=== PATIENT | female | born 1945 | race Caucasian/White ===

== ENCOUNTER → 2016-09-07 | Outpatient (CLI) | payer BC ==
[~2016-09-07] MED LIST: ASPEC81 PO; CMD5 PO; DILT120C99 PO; GLC/500 PO; METO25TA3 PO
== END | disposition home or self-care (01) ==
LOC: C.PAPS 12:30
PROVIDERS: ATTEND Obstetrics & Gynecology
DX: R87.619 Unspecified abnormal cytological findings in specimens from cervix uteri (principal); N88.0 Leukoplakia of cervix uteri

== ENCOUNTER → 2016-12-26 | Outpatient (CLI) | payer BC ==
[2016-12-26 08:35] LABS: BASO % 0.4 %; BASO ABS # 0.02 K/uL (0-0.2); COMPLETE YES; EOS % 2.2 %; HEMATOCRIT 41.9 % (37-47); IG% 0.2 %; LYMPH % 29.6 %; LYMPH ABS # 1.46 K/uL (1.2-3.4); MEAN CELL VOLUME 94.2 fL (80-100); MEAN CORPUSCULAR HEMOGLOBIN 31.7 pg (25-34); MEAN CORPUSCULAR HGB CONC 33.7 g/dl (32-36); MEAN PLATELET VOLUME 10.2 fL (7.4-10.4); NEUT % 54.6 %; PLATELET COUNT 197 K/uL (130-400); RED BLOOD COUNT 4.45 M/uL (4.2-5.4); WHITE BLOOD COUNT 4.93 K/uL (4.8-10.8)
[2016-12-26 08:56] LABS: ALT/SGPT 16 U/L (12-78); BLOOD UREA NITROGEN 18 mg/dl (7-18); CARBON DIOXIDE 29 mmol/L (21-32); CHLORIDE 109 mmol/L (98-107); CHOLESTEROL 153 mg/dl (0-200); GLUCOSE 96 mg/dl (70-99); POTASSIUM 4.5 mmol/L (3.5-5.1); SODIUM 143 mmol/L (136-145)
[2016-12-26 08:59] LABS: ALB/GLOB RATIO 0.8 (0.9-2); ALKALINE PHOSPHATASE 66 U/L (45-117); AST/SGOT 17 U/L (15-37); CHOLESTEROL/HDL RATIO 2.7; HDL CHOLESTEROL 57 mg/dl; LDL CHOLESTEROL CALCULATED 76 mg/dl; TRIGLYCERIDES 101 mg/dl (0-150); VERY LOW DENSITY LIPOPROT CALC 20 mg/dl
[2016-12-26 09:09] LABS: RATIO 10.8 mcg/mg (0-30.0)
[2016-12-26 09:14] LABS: ESTIMATED AVERAGE GLUCOSE 131 mg/dl; HA1C FLAG Normal (Normal)
[2016-12-26 09:21] LABS: CALCIUM 8.8 mg/dl (8.5-10.1)
== END | disposition home or self-care (01) ==
LOC: C.LAB 08:05
PROVIDERS: ATTEND Nurse Practitioner Family
DX: I10 Essential (primary) hypertension (principal); E11.9 Type 2 diabetes mellitus without complications; Z13.220 Encounter for screening for lipoid disorders

== ENCOUNTER → 2017-02-04 | Outpatient (CLI) | payer BC | END | disposition home or self-care (01) | LOC: C.MAMM 14:20 | PROVIDERS: ATTEND Nurse Practitioner Family | DX: Z13.820 Encounter for screening for osteoporosis (principal); M85.851 Other specified disorders of bone density and structure, right thigh; M85.852 Other specified disorders of bone density and structure, left thigh ==

== ENCOUNTER → 2017-03-18 | Outpatient (CLI) | payer BC ==
--- NOTE | 2017-03-19 14:31 | MAMMOGRAPHY REPORT ---
BILATERAL DIGITAL SCREENING MAMMOGRAM WITH CAD: 03/18/2017 CLINICAL HISTORY: Routine screening. TECHNIQUE: Current study was also evaluated with a Computer Aided Detection (CAD) system. Bilateral CC and MLO views were obtained. COMPARISON: Comparison is made to exams dated: 02/26/2016 mammogram, 02/20/2015 mammogram, 02/06/2014 ma mmogram, 07/13/2012 mammogram, 02/17/2011 mammogram - [facility], and 01/04/2009. BREAST COMPOSITION: There are scattered areas of fibroglandular density in both breasts. FINDINGS: No suspicious masses, calcifications, or areas of architectural distortion are noted in ei ther breast. There has been no significant interval change compared to prior exams. IMPRESSION: ACR BI-RADS CATEGORY 1: NEGATIVE There is no mammographic evidence of malignancy. A 1 year screening mammogram is recommended. The pa tient will receive written notification of the results. Approximately 10% of breast cancers are not detected with mammography. A negative mammographic report should not delay biopsy if a clinically suggestive mass is present. Eloisa Cheatham M.D. ah/:03/18/2017 16:28:04 [facility]: Norman PAGE(R)(M), [facility] letter sent: Normal 1/2 BI-RADS Code: ACR BI-RADS Category 1: Negative
== END | disposition home or self-care (01) ==
LOC: C.MAMM 15:11
PROVIDERS: ATTEND Obstetrics & Gynecology
DX: Z12.31 Encounter for screening mammogram for malignant neoplasm of breast (principal)

== ENCOUNTER → 2017-04-22 | Outpatient (CLI) | payer BC | END | disposition home or self-care (01) | LOC: C.PAPS 09:31 | PROVIDERS: ATTEND Obstetrics & Gynecology | DX: R87.610 Atypical squamous cells of undetermined significance on cytologic smear of cervix (ASC-US) (principal); Z11.51 Encounter for screening for human papillomavirus (HPV); Z78.0 Asymptomatic menopausal state ==

== ENCOUNTER → 2017-09-03 | Outpatient (CLI) | payer BC ==
[2017-09-03 17:34] LABS: ALBUMIN 3.3 gm/dl (3.4-5.0); ALT/SGPT 19 U/L (12-78); BLOOD UREA NITROGEN 23 mg/dl (7-18); CALCIUM 8.5 mg/dl (8.5-10.1); CARBON DIOXIDE 28 mmol/L (21-32); CREATININE 1.21 mg/dl (0.60-1.20); GLUCOSE 82 mg/dl (70-99); POTASSIUM 4.3 mmol/L (3.5-5.1); SODIUM 140 mmol/L (136-145)
[2017-09-03 17:37] LABS: ALKALINE PHOSPHATASE 74 U/L (45-117); AST/SGOT 19 U/L (15-37); TOTAL PROTEIN 7.2 gm/dl (6.4-8.2)
== END | disposition home or self-care (01) ==
LOC: C.LAB1850 14:50
PROVIDERS: ATTEND Nurse Practitioner Family
DX: E11.9 Type 2 diabetes mellitus without complications (principal)

== ENCOUNTER → 2017-10-01 | Outpatient (CLI) | payer BC ==
[2017-10-01 15:07] LABS: ALBUMIN 3.2 gm/dl (3.4-5.0); AST/SGOT 15 U/L (15-37); BLOOD UREA NITROGEN 17 mg/dl (7-18); CALCIUM 8.7 mg/dl (8.5-10.1); CARBON DIOXIDE 28 mmol/L (21-32); CREATININE 1.03 mg/dl (0.60-1.20); GLUCOSE 78 mg/dl (70-99); POTASSIUM 4.1 mmol/L (3.5-5.1); SODIUM 139 mmol/L (136-145)
[2017-10-01 15:09] LABS: ALKALINE PHOSPHATASE 77 U/L (45-117); ALT/SGPT 16 U/L (12-78)
== END | disposition home or self-care (01) ==
LOC: C.LAB1850 12:54
PROVIDERS: ATTEND Nurse Practitioner Family
DX: E11.9 Type 2 diabetes mellitus without complications (principal)

== ENCOUNTER 2021-01-19 13:22 | Inpatient (IN) ==
[2021-01-19] MEDS ORDERED: FAMOTIDINE 20MG IV PUSH 20 MG/5 ML SYR IV STA (14:16)
[2021-01-19] MEDS ORDERED: ACETAMINOPHEN 1,000 MG/100 ML VIAL IV STA (14:16)
[2021-01-19] MEDS ORDERED: SODIUM CHLORIDE 0.9% 1000ML 1,000 ML IV ONE ×2 (14:16→18:08)
[2021-01-19] MEDS ORDERED: ONDANSETRON INJ 2 MG/ML 2 ML VIAL IV STA (14:16)
--- NOTE | 2021-01-19 14:34 | Emergency Department Note ---
Impression & Plan Pyelonephritis, acute, Acute kidney injury, Hypomagnesemia ED Provider Note NAME: JONO WILLOUGHBY AGE: 75 SEX: F ARRIVES VIA: Ambulance INFORMANT: Patient, ED PROVIDER(S): Addison Matthews MD CHIEF COMPLAINT: abdominal pain, n/v/d PLAN: Disposition: Admit MEDICAL DECISION MAKING: The patient is a pleasant 75-year-old woman with a past medical history of atrial fibrillation on Coumadin, hypertension, diabetes who presents to the [facility] department by her with worsening generalized weakness dizziness and palpitations in the setting of developing nausea, vomiting and diarrhea on [place] and ate dinner and she reports she ate chicken which she feels may have gotten her sick. She reports the first night/Wednesday night having too many bowel movements to count that were watery. This is slow down in frequency but she feels her nausea has not let her hydrate and feels she is dehydrated. She denies any fevers, cough, congestion, urinary symptoms. She reports having her second COVID-19 immunization in September. Denies any known COVID-19 exposures. On arrival patient is fatigued appearing, uncomfortable but no acute distress, afebrile with heart rate in the 110s and vital signs otherwise stable. She appears clinically dry. She has generalized abdominal discomfort without discrete tenderness EKG without overt acute ischemia. CXR with nonspecific interstitial thickening. WBC 11.7K. H/H and platelets wnl. INR subtherapeutic at 1.7. Chemistry without acidosis. Lactate 1.4, wnl. Cr. 1.58 c/w EZRA. Magnesium 1.5 with repletion intitiated. Otherwise, electrolytes unremarkable. Total bilirubin 1.9 with Direct bilirubin 0.8. Otherwise, LFTs without significant abnormality. Troponin negative/undetectable. Lipase wnl. UA suspicious for infection. CT abd/pelvis c/w pyelonephritis. Findings were reviewed with the patient and her . While she did feel somewhat improved, she is still uncomfortable and she agrees for plan for admission. Case was discussed with Dr. Hilton, [facility] hospitalist, who will evaluate the patient for admission. Triage Nursing notes reviewed and agree them. Prior medical records reviewed Vital Signs: reviewed and remarkable for tachycardia. Differential diagnosis: Appendicitis, ovarian cyst, ovarian torsion, ectopic , TOA, PID, infections, diverticulitis, UTI, obstruction, mesenteric ischemia, aortic pathology, inflammatory bowel disease, renal colic, PUD, pancreatitis, biliary pathology, hernia, volvulus, constipation, as well as other pathologies. ER treatment provided: See below. Diagnostics interpreted by me: ECG: Atrial Fibrillation, 113 bpm, no ectopy, nonspecific ST abnormality, no overt ST elevation or depression. Cardiac Monitoring: An order for continuous cardiac monitoring was placed and demonstrated Atrial Fibrillation, 113 bpm, no ectopy. Laboratory studies: See below Imaging studies: See below Consultation(s): Case was discussed with Dr. Hilton, [facility] hospitalist, who will evaluate the patient for admission. HPI: The patient is a pleasant 75-year-old woman with a past medical history of atrial fibrillation on Coumadin, hypertension, diabetes who presents to the emergency department by her with worsening generalized weakness dizziness and palpitations in the setting of developing nausea, vomiting and telly rrhea on Wednesday when [place] and ate dinner and she reports she ate chicken which she feels may have gotten her sick. She reports the first night/Wednesday night having too many bowel movements to count that were watery. This is slow down in frequency but she feels her nausea has not let her hydrate and feels she is dehydrated. She denies any fevers, cough, congestion, urinary symptoms. She reports having her second COVID-19 immunization in September. Denies any known COVID-19 exposures. ROS: See above HPI for pertinent positives & negatives. A total of 10 systems reviewed and were otherwise negative. PAST MEDICAL HISTORY:See Below PAST SURGICAL HISTORY:See Below FAMILY HISTORY:See Below SOCIAL HISTORY:See Below HOME MEDICATIONS:See Below ALLERGIES:See Below VITALS:See Below PHYSICAL EXAMINATION: GENERAL: Awake, alert, fatigued/uncomfortable-appearing, in no distress HENT: Normocephalic, atraumatic. Oropharynx with dry mucous membranes and otherwise unremarkable. EYES: Normal conjunctiva. Sclera non-icteric. NECK: Supple. No nuchal rigidity. FROM. No JVD. RESPIRATORY: Clear to auscultation. CARDIAC: Tachycardia rate, irregular rhythm. Extremities warm and well perfused. Pulses equal. ABDOMEN: Soft, non-distended. Generalized abdominal discomfort without discrete tenderness to palpation. No rebound or guarding. No masses. RECTAL: Deferred. MUSCULOSKELETAL: Chest examination reveals no tenderness. The back is symmetrical on inspection without obvious abnormality. There is no CVA tenderness to palpation. No joint edema. LOWER EXTREMITIES: Calves are equal size bilaterally and non-tender. No edema. N o discoloration. NEURO: Normal sensorium. No sensory or motor deficits noted. SKIN: No rash or jaundice noted. Addison Matthews MD Past Med/Surg History Medical History Anticoagulant long-term use Atrial fibrillation with RVR (09/21/13) Atypical glandular cells of undetermined significance (TRES) on cervical Pap smear Diabetes mellitus Hypertension Permanent atrial fibrillation Surgical History History of bladder suspension procedure History of partial hysterectomy History of umbilical hernia repair Family History Mother , from CHF Heart disease Pacemaker Son Pharyngeal cancer Father , ESRD Kidney disease Brother , from cancer - uncertain type Cancer Denies family history of Ovarian cancer Prostate cancer Breast cancer Colorectal cancer Social History Smoking Status: Never smoker Do You Dip or Chew Tobacco: Yes; Hx Alcohol Use: No Hx Substance Use: No Preferred Language: Anguill[place] Communication Ability: Effective Beliefs That Will Affect Care: None marital status: Current Living Situation: Spouse current occupational status: employed current occupation: [employer] How many Children do You have: 3 other: lives in [place] Feels Safe at Home: Yes Safety Concerns: Feels Safe At This Time Childhood Exposure to Second-Hand Smoke: Yes Dental Care, Regularly: Yes Physical Activity Frequency: 3-4 Times per Week Seatbelt Use: always Sunscreen Use: Yes Assistive Devices: None Allergies Allergies Allergy/AdvReac Type Severity Reaction Status Date / Time No Known Drug Allergies Allergy Unknown Verified 01/19/21 15:12 Home Meds Home Medications Medication Instructions Recorded Confirmed multivitamin 1 tab PO DAILY 01/11/19 01/19/21 aspirin [Aspirin Low Dose] 81 mg PO DAILY 01/19/21 01/19/21 Previous Rx's Medication Instructions Recorded warfarin 5 mg tablet See Rx Instructions PO DAILY #150 02/22/20 tab blood sugar diagnostic #100 ea 05/08/20 lancets 30 gauge #100 ea 05/08/20 diltiazem HCl 120 mg capsule,24 120 mg PO DAILY #90 cap 09/25/20 hr,extended release metformin 500 mg tablet 500 mg PO DAILY #90 tab 10/09/20 metoprolol succinate 25 mg 25 mg PO DAILY #90 tab 11/08/20 tablet,extended release 24 hr Results & Data (ED) Vital Signs Vital Signs - 24 hr 01/19/21 13:23 01/19/21 13:30 01/19/21 13:32 Temperature 37.1 C Temperature Source Oral Pulse Rate 132 H 112 H Pulse Rate from SpO2 Sensor 110 H Pulse Rhythm Irregular Respiratory Rate 22 30 H Blood Pressure 107/75 118/70 Blood Pressure Mean 85 86 Blood Pressure Position Lying Pulse Oximetry 92 92 92 Oxygen Delivery Method Room Air Room Air Room Air Oxygen Flow Rate Sepsis Recent Fever Within 48 Hours No Sepsis New/Unexplained Change in Mental Status No Sepsis Action Taken by Nursing No Action Required 01/19/21 13:37 01/19/21 13:45 01/19/21 13:46 Temperature Temperature Source Pulse Rate 113 H 114 H 115 H Pulse Rate from SpO2 Sensor 119 H 114 H 128 H Pulse Rhythm Respiratory Rate 31 H 31 H 29 H Blood Pressure 101/61 Blood Pressure Mean 74 Blood Pressure Position Pulse Oximetry 93 92 90 Oxygen Delivery Method Room Air Room Air Room Air Oxygen Flow Rate Sepsis Recent Fever Within 48 Hours Sepsis New/Unexplained Change in Mental Status Sepsis Action Taken by Nursing 01/19/21 14:00 01/19/21 14:01 01/19/21 14:15 Temperature Temperature Source Pulse Rate 99 H 113 H 117 H Pulse Rate from SpO2 Sensor 112 H 108 H 111 H Pulse Rhythm Respiratory Rate 30 H 21 29 H Blood Pressure 115/62 125/52 L Blood Pressure Mean 79 76 Blood Pressure Position Pulse Oximetry 89 L 92 90 Oxygen Delivery Method Room Air Oxygen Flow Rate Sepsis Recent Fever Within 48 Hours Sepsis New/Unexplained Change in Mental Status Sepsis Action Taken by Nursing 01/19/21 14:16 01/19/21 14:30 01/19/21 14:31 Temperature Temperature Source Pulse Rate 101 H 108 H 100 H Pulse Rate from SpO2 Sensor 102 H 104 H 99 H Pulse Rhythm Respiratory Rate 25 H 25 H 20 Blood Pressure 95/63 L Blood Pressure Mean 73 Blood Pressure Position Pulse Oximetry 92 91 94 Oxygen Delivery Method Room Air Room Air Oxygen Flow Rate Sepsis Recent Fever Within 48 Hours Sepsis New/Unexplained Change in Mental Status Sepsis Action Taken by Nursing 01/19/21 14:45 01/19/21 14:46 01/19/21 15:00 Temperature Temperature Source Pulse Rate 99 H 99 H 95 H Pulse Rate from SpO2 Sensor 102 H 100 H 101 H Pulse Rhythm Respiratory Rate 30 H 31 H 26 H Blood Pressure 99/59 L 95/55 L Blood Pressure Mean 72 68 Blood Pressure Position Pulse Oximetry 89 L 89 L 90 Oxygen Delivery Method Oxygen Flow Rate Sepsis Recent Fever Within 48 Hours Sepsis New/Unexplained Change in Mental Status Sepsis Action Taken by Nursing 01/19/21 15:01 01/19/21 15:08 01/19/21 15:15 Temperature Temperature Source Pulse Rate 102 H 84 Pulse Rate from SpO2 Sensor 99 H 87 Pulse Rhythm Respiratory Rate 29 H 27 H Blood Pressure 98/58 L Blood Pressure Mean 71 Blood Pressure Position Pulse Oximetry 92 88 L 94 Oxygen Delivery Method Room Air Oxygen Flow Rate 2 Sepsis Recent Fever Within 48 Hours Sepsis New/Unexplained Change in Mental Status Sepsis Action Taken by Nursing 01/19/21 15:16 01/19/21 15:30 01/19/21 15:31 Temperature Temperature Source Pulse Rate 87 108 H 92 H Pulse Rate from SpO2 Sensor 90 100 H 92 H Pulse Rhythm Respiratory Rate 28 H 24 25 H Blood Pressure 96/62 L Blood Pressure Mean 73 Blood Pressure Position Pulse Oximetry 92 95 95 Oxygen Delivery Method Oxygen Flow Rate Sepsis Recent Fever Within 48 Hours Sepsis New/Unexplained Change in Mental Status Sepsis Action Taken by Nursing 01/19/21 15:45 01/19/21 15:46 01/19/21 16:15 Temperature Temperature Source Pulse Rate 83 89 Pulse Rate from SpO2 Sensor 87 89 102 H Pulse Rhythm Respiratory Rate 24 26 H Blood Pressure 95/62 L Blood Pressure Mean 73 Blood Pressure Position Pulse Oximetry 96 96 96 Oxygen Delivery Method Oxygen Flow Rate Sepsis Recent Fever Within 48 Hours Sepsis New/Unexplained Change in Mental Status Sepsis Action Taken by Nursing 01/19/21 16:16 01/19/21 16:30 01/19/21 16:31 Temperature Temperature Source Pulse Rate Pulse Rate from SpO2 Sensor 85 88 90 Pulse Rhythm Respiratory Rate Blood Pressure 114/79 108/72 Blood Pressure Mean 90 84 Blood Pressure Position Pulse Oximetry 96 95 95 Oxygen Delivery Method Oxygen Flow Rate Sepsis Recent Fever Within 48 Hours Sepsis New/Unexplained Change in Mental Status Sepsis Action Taken by Nursing 01/19/21 16:45 01/19/21 17:00 01/19/21 17:01 Temperature Temperature Source Pulse Rate Pulse Rate from SpO2 Sensor 90 96 H 89 Pulse Rhythm Respiratory Rate Blood Pressure 105/60 Blood Pressure Mean 75 Blood Pressure Position Pulse Oximetry 94 95 95 Oxygen Delivery Method Oxygen Flow Rate Sepsis Recent Fever Within 48 Hours Sepsis New/Unexplained Change in Mental Status Sepsis Action Taken by Nursing 01/19/21 17:15 01/19/21 17:16 01/19/21 17:30 Temperature Temperature Source Pulse Rate Pulse Rate from SpO2 Sensor 92 H 88 86 Pulse Rhythm Respiratory Rate Blood Pressure 109/69 97/63 L Blood Pressure Mean 82 74 Blood Pressure Position Pulse Oximetry 94 94 94 Oxygen Delivery Method Room Air Room Air Room Air Oxygen Flow Rate Sepsis Recent Fever Within 48 Hours Sepsis New/Unexplained Change in Mental Status Sepsis Action Taken by Nursing 01/19/21 17:31 01/19/21 17:45 01/19/21 17:46 Temperature Temperature Source Pulse Rate Pulse Rate from SpO2 Sensor 94 H 95 H 90 Pulse Rhythm Respiratory Rate Blood Pressure 106/81 Blood Pressure Mean 89 Blood Pressure Position Pulse Oximetry 94 94 94 Oxygen Delivery Method Room Air Oxygen Flow Rate Sepsis Recent Fever Within 48 Hours Sepsis New/Unexplained Change in Mental Status Sepsis Action Taken by Nursing 01/19/21 18:00 01/19/21 18:01 01/19/21 18:15 Temperature Temperature Source Pulse Rate Pulse Rate from SpO2 Sensor 86 83 91 H Pulse Rhythm Respiratory Rate Blood Pressure 111/73 104/73 Blood Pressure Mean 85 83 Blood Pressure Position Pulse Oximetry 92 92 91 Oxygen Delivery Method Oxygen Flow Rate Sepsis Recent Fever Within 48 Hours Sepsis New/Unexplained Change in Mental Status Sepsis Action Taken by Nursing 01/19/21 18:16 01/19/21 18:30 01/19/21 18:31 Temperature Temperature Source Pulse Rate Pulse Rate from SpO2 Sensor 95 H 95 H 82 Pulse Rhythm Respiratory Rate Blood Pressure 113/66 Blood Pressure Mean 81 Blood Pressure Position Pulse Oximetry 94 92 90 Oxygen Delivery Method Oxygen Flow Rate Sepsis Recent Fever Within 48 Hours Sepsis New/Unexplained Change in Mental Status Sepsis Action Taken by Nursing Laboratory Data Attestation: I reviewed the patient's lab results. Result diagrams: 01/19/21 13:42 06/20/21 13:42 Lab Results 01/19/21 01/19/21 01/19/21 Range/Units 13:42 13:42 13:42 WBC 11.76 H (4.8-10.8) K/uL RBC 4.21 (4.2-5.4) M/uL Hgb 13.6 (12.0-16.0) g/dL Hct 40.3 (37-47) % MCV 95.7 (80-100) fL MCH 32.3 (25-34) pg MCHC 33.7 (32-36) g/dL RDW Std Deviation 45.8 (36.4-46.3) fL RDW Coeff of Zahida 13.2 (11.5-14.5) % Plt Count 162 (130-400) K/uL MPV 10.5 H (7.4-10.4) fL Immature Gran % (Auto) 0.2 % Neut % (Auto) 93.3 % Lymph % (Auto) 3.1 % [place] % (Auto) 3.4 % Eos % (Auto) 0.0 % Baso % (Auto) 0.0 % Neut # (Auto) 10.98 H (1.4-6.5) K/uL Lymph # (Auto) 0.36 L (1.2-3.4) K/uL [place] # (Auto) 0.40 (0.11-0.59) K/uL Eos # (Auto) 0.00 (0-0.5) K/uL Baso # (Auto) 0.00 (0-0.2) K/uL Immature Gran # (Auto) 0.02 (0.00-0.02) K/uL PT 16.8 H (9.0-12.0) Seconds INR 1.7 H (0.9-1.1) APTT 32.9 H (21.0-31.0) Seconds PTT Ratio 1.3 Sodium 142 (136-145) mmol/L Potassium 3.8 (3.5-5.1) mmol/L Chloride 109 H (98-107) mmol/L Carbon Dioxide 21 (21-32) mmol/L Anion Gap 12.0 H (3-11) BUN 18 (7-18) mg/dl Creatinine 1.58 H (0.6-1.2) mg/dl Est Cr Clr Drug Dosing 36.1 ml/min Est GFR ( Amer) 37.2 ml/min Est GFR (Non-Af Amer) 32.1 ml/min BUN/Creatinine Ratio 11.3 (10-20) Glucose 103 H (70-99) mg/dl Lactate (0.4-2.0) mmol/L Calcium 7.9 L (8.5-10.1) mg/dl Phosphorus 2.5 (2.5-4.9) mg/dl Magnesium 1.5 L (1.8-2.4) mg/dl Total Bilirubin 1.9 H (0.2-1) mg/dl Direct Bilirubin 0.8 H (0-0.2) mg/dl AST 17 (15-37) U/L ALT 15 (12-78) U/L Alkaline Phosphatase 92 (45-117) U/L Troponin I < 0.015 (0-0.045) ng/ml Total Protein 7.0 (6.4-8.2) gm/dl Albumin 2.9 L (3.4-5.0) gm/dl Globulin 4.1 H (2.5-4.0) gm/dl Albumin/Globulin Ratio 0.7 L (0.9-2) Lipase 128 (73-393) U/L TSH 2.530 (0.300-4.500) uIu/ml COVID-19 Eval Order SARS-CoV-2 (PCR) (Negative) 01/19/21 01/19/21 01/19/21 Range/Units 14:47 14:47 16:46 WBC (4.8-10.8) K/uL RBC (4.2-5.4) M/uL Hgb (12.0-16.0) g/dL Hct (37-47) % MCV (80-100) fL MCH (25-34) pg MCHC (32-36) g/dL RDW Std Deviation (36.4-46.3) fL RDW Coeff of Zahida (11.5-14.5) % Plt Count (130-400) K/uL MPV (7.4-10.4) fL Immature Gran % (Auto) % Neut % (Auto) % Lymph % (Auto) % [place] % (Auto) % Eos % (Auto) % Baso % (Auto) % Neut # (Auto) (1.4-6.5) K/uL Lymph # (Auto) (1.2-3.4) K/uL [place] # (Auto) (0.11-0.59) K/uL Eos # (Auto) (0-0.5) K/uL Baso # (Auto) (0-0.2) K/uL Immature Gran # (Auto) (0.00-0.02) K/uL PT (9.0-12.0) Seconds INR (0.9-1.1) APTT (21.0-31.0) Seconds PTT Ratio Sodium (136-145) mmol/L Potassium (3.5-5.1) mmol/L Chloride (98-107) mmol/L Carbon Dioxide (21-32) mmol/L Anion Gap (3-11) BUN (7-18) mg/dl Creatinine (0.6-1.2) mg/dl Est Cr Clr Drug Dosing ml/min Est GFR ( Amer) ml/min Est GFR (Non-Af Amer) ml/min BUN/Creatinine Ratio (10-20) Glucose (70-99) mg/dl Lactate 1.4 (0.4-2.0) mmol/L Calcium (8.5-10.1) mg/dl Phosphorus (2.5-4.9) mg/dl Magnesium (1.8-2.4) mg/dl Total Bilirubin (0.2-1) mg/dl Direct Bilirubin (0-0.2) mg/dl AST (15-37) U/L ALT (12-78) U/L Alkaline Phosphatase (45-117) U/L Troponin I (0-0.045) ng/ml Total Protein (6.4-8.2) gm/dl Albumin (3.4-5.0) gm/dl Globulin (2.5-4.0) gm/dl Albumin/Globulin Ratio (0.9-2) Lipase (73-393) U/L TSH (0.300-4.500) uIu/ml COVID-19 Eval Order Covid19 at [facility] SARS-CoV-2 (PCR) NEGATIVE (Negative) Administered Medications Sodium Chloride (Nss 1000ml) 1,000 mls @ 75 mls/hr IV .[id number] EDIS Stop: 01/21/21 00:12 Last Admin: 01/19/21 22:00 Dose: 75 mls/hr Documented by: [id number] Famotidine 20 mg/ Syringe 5 mls @ 2.5 mls/min IV BID EDIS Stop: 02/18/21 21:59 Last Admin: 01/19/21 22:42 Dose: 2.5 mls/min Documented by: [id number] Cefepime HCl 2,000 mg/ Syringe 20 mls @ 5 mls/min IV Q12H EDIS; Protocol Stop: 01/21/21 21:59 Last Admin: 01/19/21 22:43 Dose: 5 mls/min Documented by: [id number] Insulin Aspart (Insulin Aspart 100 Units/Ml 3 Ml Pen) 0 units SC ACHS EDIS Stop: 02/18/21 21:59 Last Admin: 01/19/21 21:53 Dose: Not Given Documented by: [id number] Discontinued Medications Sodium Chloride (Nss 1000ml) 1,000 mls @ 999 mls/hr IV .Q1H1M ONE Stop: 01/19/21 15:16 Last Infusion: 01/19/21 16:03 Dose: 0 mls/hr Documented by: [id number] Admin: 01/19/21 14:43 Dose: 999 mls/hr Documented by: [id number] Acetaminophen (Ofirmev) 1,000 mg in 100 mls @ 400 mls/hr IV NOW STA Stop: 01/19/21 14:30 Last Infusion: 01/19/21 14:56 Dose: 0 mls/hr Documented by: [id number] Admin: 01/19/21 14:41 Dose: 400 mls/hr Documented by: [id number] Famotidine (Pepcid 20mg Iv Push) 20 mg in 5 mls @ 2.5 mls/min IV NOW STA Stop: 01/19/21 14:17 Last Admin: 01/19/21 14:42 Dose: 2.5 mls/min Documented by: [id number] Magnesium Sulfate/Dextrose (Magnesium Sulfate / D5w) 1 gm in 100 mls @ 100 mls/hr IV NOW STA Stop: 01/19/21 17:26 Last Infusion: 01/19/21 20:43 Dose: 0 mls/hr Documented by: [id number] Admin: 01/19/21 17:03 Dose: 100 mls/hr Documented by: [id number] Ceftriaxone Sodium (Rocephin) 2,000 mg in 70 mls @ 140 mls/hr IV NOW STA Stop: 01/19/21 16:57 Last Infusion: 01/19/21 17:32 Dose: 0 mls/hr Documented by: [id number] Admin: 01/19/21 17:02 Dose: 140 mls/hr Documented by: [id number] Magnesium Sulfate/Dextrose (Magnesium Sulfate / D5w) 1 gm in 100 mls @ 100 mls/hr IV NOW STA Stop: 01/19/21 18:43 Last Infusion: 01/19/21 20:43 Dose: 0 mls/hr Documented by: [id number] Admin: 01/19/21 18:31 Dose: 100 mls/hr Documented by: [id number] Sodium Chloride (Nss 1000ml) 1,000 mls @ 999 mls/hr IV .Q1H1M ONE Stop: 01/19/21 19:08 Last Infusion: 01/19/21 20:43 Dose: 0 mls/hr Documented by: [id number] Admin: 01/19/21 18:31 Dose: 999 mls/hr Documented by: [id number] Vancomycin HCl 2,000 mg/ (Sodium Chloride) 540 mls @ 200 mls/hr IV ONE ONE; Protocol Stop: 01/20/21 00:26 Last Infusion: 01/20/21 03:10 Dose: 0 mls/hr Documented by: [id number] Admin: 01/19/21 22:39 Dose: 200 mls/hr Documented by: [id number] Ioversol (Optiray 320 100ml) 94 ml IV ONCE ONE Stop: 01/19/21 16:06 Last Admin: 01/19/21 16:05 Dose: 1 ml Documented by: [id number] Ondansetron HCl (Ondansetron Inj 2 Mg/Ml 2 Ml Vial) 4 mg IV NOW STA Stop: 01/19/21 14:17 Last Admin: 01/19/21 14:42 Dose: 4 mg Documented by: [id number] Imaging Data Radiologist's Impression: Abdomen/Pelvis CT 01/19/21 14:[address] WITH IV CONTRAST CT DOSE: 767.32 mGy.cm HISTORY: Positive. Vomiting. Diarrhea. Dizziness. TECHNIQUE: Multiaxial CT images of the abdomen and pelvis were performed following the use of intravenous contrast. A dose lowering technique was u tilized adhering to the principles of ALARA. COMPARISON STUDY: Abdomen and pelvis CT 08/13/2010. FINDINGS: A punctate calcified granuloma within the base of the right lower lobe. A few bibasilar linear densities suggesting subsegmental atelectasis. No pneumoperitoneum. No pneumatosis. No suspicious lytic or blastic osseous lesions. There is a gastric fundal diverticulum. The liver, gallbladder, pancreas, spleen, and adrenal glands are unremarkable. There is a 9 mm hypodense lesion within the left kidney. This is technically too small to characterize but statistically represents a cyst. Fullness within the lower pole of the left kidney appears to represent a parapelvic cyst. This remains unchanged. No definite hydronephrosis. There is mild bilateral perinephric fat stranding and diffuse urothelial thickening within the bilateral renal collecting systems and ureters. There is moderate bladder wall thickening which is underdistended. [place] focus of gas anteriorly within the bladder. This is likely within a tiny bladder diverticulum. There is inflammatory change surrounding the thickened bladder. The uterus is surgically absent. There is mild pelvic floor collapse. There is diffuse periureteral edema bilaterally. Small fat-containing right inguinal hernia. Colonic and jejunal diverticulosis. No evidence for acute diverticulitis. No bowel wall thickening or obstruction. Normal appendix. There are also multiple ileal diverticula. No retroperitoneal lymphadenopathy. Normal caliber abdominal aorta. IMPRESSION: 1. Moderate bladder wall thickening with adjacent fat stranding. There is also diffuse bilateral urothelial thickening and mild bilateral perinephric fat stranding. Therefore, these findings favor a cystitis with bilateral pyelitis/pyelonephritis. Recommend correlation with urinalysis. 2. Stable fullness within the lower pole of the left kidney which favors a parapelvic cyst. No definite hydronephrosis. 3. No bowel wall thickening or obstruction. 4. Normal appendix. 5. Small large bowel diverticula. No evidence for acute diverticulitis. ACT 112: Negative or not required by law. Electronically signed by: Geovani Banuelos M.D. 01/19/2021 4:22 PM Discharge Plan Visit Data Chief Complaint: Cardiac Assessment ED Provider: Addison Matthews Discharge Problem: Pyelonephritis, acute, Acute kidney injury, Hypomagnesemia Patient Disposition: Admitted As Inpatient Discharge Instructions Interventions: ED Discharge Assessment Last Done: 01/19/21 21:00
[2021-01-19 14:35] LABS: Hematocrit (blood only) 40.3 % (37-47); Hemoglobin 13.6 g/dL (12.0-16.0); Immature Granulocytes # (auto) 0.02 K/uL (0.00-0.02); Immature Granulocytes % (auto) 0.2 %; Lymphocytes # (auto) 0.36 K/uL (1.2-3.4); Lymphocytes % (auto) 3.1 %; Mean Corpuscular Hemoglobin 32.3 pg (25-34); Mean Corpuscular Hgb Conc 33.7 g/dL (32-36); Mean Corpuscular Volume 95.7 fL (80-100); Mean Platelet Volume 10.5 fL (7.4-10.4); Monocytes % (auto) 3.4 %; Neutrophils # (auto) 10.98 K/uL (1.4-6.5); Neutrophils % (auto) 93.3 %; Platelet Count 162 K/uL (130-400); RDW Coefficient of Variation 13.2 % (11.5-14.5); RDW Standard Deviation 45.8 fL (36.4-46.3); Red Blood Count 4.21 M/uL (4.2-5.4); White Blood Count 11.76 K/uL (4.8-10.8)
[2021-01-19 14:44] LABS: Alanine Aminotransferase 15 U/L (12-78); Albumin Level 2.9 gm/dl (3.4-5.0); Aspartate Aminotransferase 17 U/L (15-37); BUN Creatinine Ratio 11.3 (10-20); Bilirubin Direct 0.8 mg/dl (0-0.2); Blood Urea Nitrogen 18 mg/dl (7-18); Calcium 7.9 mg/dl (8.5-10.1); Carbon Dioxide 21 mmol/L (21-32); Chloride 109 mmol/L (98-107); Creatinine Clr Calc Pharmacy 36.1 ml/min; Est GFR (African American) 37.2 ml/min; Est GFR (Non-African American) 32.1 ml/min; Glucose 103 mg/dl (70-99); Lipase 128 U/L (73-393); Magnesium 1.5 mg/dl (1.8-2.4); Potassium 3.8 mmol/L (3.5-5.1); Sodium 142 mmol/L (136-145)
--- NOTE | 2021-01-19 14:46 | XRay Report ---
XR chest 1V portable HISTORY: Atypical Chest Pain COMPARISON: Chest 09/21/2013. FINDINGS: No pneumothorax. The heart remains mildly enlarged. There is mild diffuse interstitial thic kening. This is likely chronic. Otherwise, no focal lung consolidations to suggest pneumonia. No evid ence for pulmonary edema. IMPRESSION: Mild cardiomegaly with diffuse interstitial thickening. This is likely chronic. ACT 112: Negative or not required by law. Electronically signed by: Geovani Banuelos M.D. 01/19/2021 2:44 PM
[2021-01-19 14:48] LABS: INR 1.7 (0.9-1.1); Partial Thromboplastin Ratio 1.3; Partial Thromboplastin Time 32.9 Seconds (21.0-31.0); Prothrombin Time 16.8 Seconds (9.0-12.0)
[2021-01-19 14:53] LABS: Albumin Globulin Ratio 0.7 (0.9-2); Alkaline Phosphatase 92 U/L (45-117); Bilirubin,Total 1.9 mg/dl (0.2-1); Globulin 4.1 gm/dl (2.5-4.0); Phosphorus 2.5 mg/dl (2.5-4.9); Troponin I < 0.015 ng/ml (0-0.045)
[2021-01-19] MEDS ORDERED: OPTIRAY 320 100ml IV ONE (16:05)
--- NOTE | 2021-01-19 16:23 | CT Scan Report ---
ABDOMEN AND PELVIS CT WITH IV CONTRAST CT DOSE: 767.32 mGy.cm HISTORY: Positive. Vomiting. Diarrhea. Dizziness. TECHNIQUE: Multiaxial CT images of the abdomen and pelvis were performed following the use of intrave nous contrast. A dose lowering technique was utilized adhering to the principles of ALARA. COMPARISON STUDY: Abdomen and pelvis CT 08/13/2010. FINDINGS: A punctate calcified granuloma within the base of the right lower lobe. A few bibasilar neli ear densities suggesting subsegmental atelectasis. No pneumoperitoneum. No pneumatosis. No suspicious lytic or blastic osseous lesions. There is a gastric fundal diverticulum. The liver, gallbladder, pa ncreas, spleen, and adrenal glands are unremarkable. There is a 9 mm hypodense lesion within the left kidney. This is technically too small to characterize but statistically represents a cyst. Fullness within the lower pole of the left kidney appears to represent a parapelvic cyst. This remains unchang ed. No definite hydronephrosis. There is mild bilateral perinephric fat stranding and diffuse urothel ial thickening within the bilateral renal collecting systems and ureters. There is moderate bladder w all thickening which is underdistended. Punctate focus of gas anteriorly within the bladder. This is likely within a tiny bladder diverticulum. There is inflammatory change surrounding the thickened vivi dder. The uterus is surgically absent. There is mild pelvic floor collapse. There is diffuse periuret eral edema bilaterally. Small fat-containing right inguinal hernia. Colonic and jejunal diverticulosi s. No evidence for acute diverticulitis. No bowel wall thickening or obstruction. Normal appendix. Th ere are also multiple ileal diverticula. No retroperitoneal lymphadenopathy. Normal caliber abdominal aorta. IMPRESSION: 1. Moderate bladder wall thickening with adjacent fat stranding. There is also diffuse bilateral urot helial thickening and mild bilateral perinephric fat stranding. Therefore, these findings favor a cys titis with bilateral pyelitis/pyelonephritis. Recommend correlation with urinalysis. 2. Stable fullness within the lower pole of the left kidney which favors a parapelvic cyst. No defini te hydronephrosis. 3. No bowel wall thickening or obstruction. 4. Normal appendix. 5. Small large bowel diverticula. No evidence for acute diverticulitis. ACT 112: Negative or not required by law. Electronically signed by: Geovani Banuelos M.D. 01/19/2021 4:22 PM
[2021-01-19] MEDS ORDERED: MAGNESIUM SULFATE / D5W 1 GM/100 ML BAG IV STA ×2 (16:27→17:44)
[2021-01-19] MEDS ORDERED: cefTRIAXone SODIUM 2,000 MG/70 ML BAG IV STA (16:28)
--- NOTE | 2021-01-19 17:24 | Electrocardiogram Report ---
Test Reason : Blood Pressure : / mmHG Vent. Rate : 113 BPM Atrial Rate : 312 BPM P-R Int : 000 ms QRS Dur : 072 ms QT Int : 316 ms P-R-T Axes : 000 -01 017 degrees QTc Int : 433 ms Atrial fibrillation with rapid ventricular response Nonspecific ST abnormality Abnormal ECG When compared with ECG of 21-SEP-2013 13:59, Vent. rate has increased BY 49 BPM Confirmed by Fletcher Hurtado ([id number]) on 01/19/2021 5:23:54 PM Referred By: Confirmed By:Joao Hurtado
--- NOTE | 2021-01-19 17:44 | History & Physical Report ---
Date of Service January 19, 2021 Assessment & Plan (1) Sepsis: 2nd to UTI with pyelonephritis. Broad-spectrum IV abx, fluid resuscitation, and supportive care. repeat labs in am. follow blood/urine cx's. COVID negative. (2) Pyelonephritis, acute: b/l. as seen on CT abd/pelvis today. no renal stones. patient without any abdominal pain or flank pain fortunately. blood/urine cx's sent. given rocephin in ER. however, given the hypotension, EZRA, and sepsis will broaden to cefepime/vanco. narrow these abx once culture results are known. (3) Acute kidney injury: baseline Cr 1. today's Cr 1.5. this is secondary to dehydration and sepsis-associated ATN. hydrate, repeat bmp am. (4) Diabetes mellitus: well-controlled. last HbA1c was 6.1% in early October. HOLD metformin. novolog sliding scale for now. DM diet. (5) Hypertension: BPs low or low-normal since arrival. 2nd to volume depletion & sepsis. is on CCB and BB for HTN & a.fib rate control. continue both for now but may need adjusting. (6) Permanent atrial fibrillation: INR 1.7 today. given antibiotics will not increase her usual dose. simply resume normal outpatient coumadin regimen. daily INR while here. continue BB and CCB for rate control. rates improved while in ER with volume resuscitation. (7) Hypomagnesemia: 2nd to poor oral intake & vomiting at home. give total 2 grams mag sulfate now. then repeat mag level am. (8) Hypotension: transient. 2nd to sepsis. improved s/p fluid boluses x 2 in ER. monitor carefully. adjust and/or hold, if needed, her BB and CCB. (9) Elevated bilirubin: uncertain cause. has never had elevated bilirubin levels in the past. the direct portion is also a bit high. gall bladder anatomically looks normal on CT today. no symptoms referrable to her gall bladder at this time. will simply repeat in am. (10) DVT prophylaxis: cont coumadin with daily INR if she remains persistently <2 then start heparin SC for DVT proph PT, OT evals due to weakness updated at bedside History of Present Illness Chief Complaint: stomach upset, feeling ill, "I thought I had the flu" Primary Care Provider: Eric Nielson, III, ADVERTISING COORDINATOR 75yo female with permanent a.fib on coumadin presents with illness starting on Wednesday. Began with urinary frequency on Wednesday evening which persisted into Wednesday. No dysuria or foul-smelling urine however. This was followed by nausea with emesis along with anorexia starting Wednesday. Mild loose stool on Wednesday but none since. Subjective fever yesterday, then had cold chills overnight. Anorexia and nausea persisted today. She then began to feel dizzy prior to coming to the hospital. She states "I thought I was dehydrated." All of the above prompted her to seek medical attention. Denies any sick contacts. She is fully vaccinated against COVID-19. Allergies Allergy/AdvReac Type Severity Reaction Status Date / Time No Known Drug Allergies Allergy Unknown Verified 01/19/21 15:12 Home Medications Medication Instructions Recorded Confirmed Type multivitamin 1 tab PO DAILY 01/11/19 01/19/21 History warfarin 5 mg tablet See Rx Instructions PO DAILY #150 02/22/20 01/19/21 Rx tab blood sugar diagnostic #100 ea 05/08/20 11/11/20 Rx lancets 30 gauge #100 ea 05/08/20 11/11/20 Rx diltiazem HCl 120 mg capsule,24 120 mg PO DAILY #90 cap 09/25/20 01/19/21 Rx hr,extended release metformin 500 mg tablet 500 mg PO DAILY #90 tab 10/09/20 01/19/21 Rx metoprolol succinate 25 mg 25 mg PO DAILY #90 tab 11/08/20 01/19/21 Rx tablet,extended release 24 hr aspirin [Aspirin Low Dose] 81 mg PO DAILY 01/19/21 01/19/21 History Past Med/Surg History Medical History (Updated 01/19/21 @ 23:59 by Lukasz Hilton) Anticoagulant long-term use Atrial fibrillation with RVR (09/21/13) Atypical glandular cells of undetermined significance (TRES) on cervical Pap smear Diabetes mellitus Hypertension Permanent atrial fibrillation Surgical History (Updated 01/19/21 @ 18:00 by Lukasz Hilton) History of bladder suspension procedure History of partial hysterectomy History of umbilical hernia repair Family History Mother , from CHF Heart disease Pacemaker Son Pharyngeal cancer Father , ESRD Kidney disease Brother , from cancer - uncertain type Cancer Denies family history of Ovarian cancer Prostate cancer Breast cancer Colorectal cancer Social History (Updated 01/19/21 @ 18:05 by Lukasz Hilton) Smoking Status: Never smoker Do You Dip or Chew Tobacco: Yes; Hx Alcohol Use: No Hx Substance Use: No Preferred Language: Syriac Communication Ability: Effective Beliefs That Will Affect Care: None marital status: Current Living Situation: Spouse current occupational status: employed current occupation: [employer] How many Children do You have: 3 other: lives in [place] Feels Safe at Home: Yes Safety Concerns: Feels Safe At This Time Childhood Exposure to Second-Hand Smoke: Yes Dental Care, Regularly: Yes Physical Activity Frequency: 3-4 Times per Week Seatbelt Use: always Sunscreen Use: Yes Assistive Devices: None Review of Systems Constitutional: + fever, + chills, + body aches, + fatigue and + anorexia Eyes: no worsening vision Ear, Nose, Mouth, Throat: no nasal congestion, no sore throat and no dysphagia Respiratory: no cough and no dyspnea on exertion Cardiovascular: + edema (venous insufficiency ); no chest pain Gastrointestinal: + nausea, + vomiting and + diarrhea/loose stools; no abdominal pain and no blood in stools Genitourinary: + urinary frequency; no hematuria and no flank pain Musculoskeletal: no back pain, no neck pain and no joint pain Integumentary: no rash Neurologic: + dizziness; no headache(s) Psychiatric: no depression and no anxiety Endocrine: BSGs 110-120 Hematologic / Lymphatic: + easy bruising Physical Exam Constitutional: + ill appearing, + obese and + frail appearing; + not appropriately hydrated and no altered mental status Eyes: PERRL ENMT: Mouth: + dry oral mucous membranes; no oropharynx abnormality Neck: trachea midline, no thyromegaly Respiratory: normal respiratory effort, lungs clear to auscultation Cardiovascular: Rate/Rhythm: regular rate and + irregularly irregular Heart Sounds: normal S1, normal S2 and + murmur (1/6 systolic LSB) Vessels: posterior tibial pulses present and dorsalis pedis pulses present; no JVD Extremities: + edema (<1+ b/l ) and + varicosities Gastrointestinal (Abdomen): normal bowel sounds, soft, nontender, no hepatosplenomegaly (no flank pain to palpation b/l ) Musculoskeletal: no cyanosis or clubbing, extremities motor strength 5/5 Skin: no rashes, warm and dry Neurologic: deep tendon reflexes 2+ bilaterally and moves all extremities Psychiatric: Orientation: alert and oriented x 3 Lymphatic: no cervical lymphadenopathy Results & Data Results & Data ([facility]) Vital Signs (Past 12 Hours) Vital Signs Temp Pulse Resp BP Pulse Ox 01/19/21 17:01 95 01/19/21 17:00 105/60 95 01/19/21 16:45 94 01/19/21 16:31 95 01/19/21 16:30 108/72 95 01/19/21 16:16 114/79 96 01/19/21 16:15 96 01/19/21 15:46 89 26 H 96 01/19/21 15:45 83 24 95/62 L 96 01/19/21 15:31 92 H 25 H 95 01/19/21 15:30 108 H 24 96/62 L 95 01/19/21 15:16 87 28 H 92 01/19/21 15:15 84 27 H 98/58 L 94 01/19/21 15:08 88 L 01/19/21 15:01 102 H 29 H 92 01/19/21 15:00 95 H 26 H 95/55 L 90 01/19/21 14:46 99 H 31 H 89 L 01/19/21 14:45 99 H 30 H 99/59 L 89 L 01/19/21 14:31 100 H 20 94 01/19/21 14:30 108 H 25 H 95/63 L 91 01/19/21 14:16 101 H 25 H 92 01/19/21 14:15 117 H 29 H 125/52 L 90 01/19/21 14:01 113 H 21 92 01/19/21 14:00 99 H 30 H 115/62 89 L 01/19/21 13:46 115 H 29 H 90 01/19/21 13:45 114 H 31 H 101/61 92 01/19/21 13:37 113 H 31 H 93 01/19/21 13:32 92 01/19/21 13:30 112 H 30 H 118/70 92 01/19/21 13:23 37.1 C 132 H 22 107/75 92 Laboratory Results Microbiology 01/19/21 16:41 Blood Aerobic Blood Culture - Pending 01/19/21 16:41 Blood Anaerobic Blood Culture - Pending 01/19/21 16:46 Blood Aerobic Blood Culture - Pending 01/19/21 16:46 Blood Anaerobic Blood Culture - Pending Labs 01/19/21 01/19/21 01/19/21 13:42 13:42 13:42 WBC 11.76 H RBC 4.21 Hgb 13.6 Hct 40.3 MCV 95.7 MCH 32.3 MCHC 33.7 RDW Std Deviation 45.8 RDW Coeff of Zahida 13.2 Plt Count 162 MPV 10.5 H Immature Gran % (Auto) 0.2 Neut % (Auto) 93.3 Lymph % (Auto) 3.1 Marshall % (Auto) 3.4 Eos % (Auto) 0.0 Baso % (Auto) 0.0 Neut # (Auto) 10.98 H Lymph # (Auto) 0.36 L Marshall # (Auto) 0.40 Eos # (Auto) 0.00 Baso # (Auto) 0.00 Immature Gran # (Auto) 0.02 PT 16.8 H INR 1.7 H APTT 32.9 H PTT Ratio 1.3 Sodium 142 Potassium 3.8 Chloride 109 H Carbon Dioxide 21 Anion Gap 12.0 H BUN 18 Creatinine 1.58 H Est Cr Clr Drug Dosing 36.1 Est GFR ( Amer) 37.2 Est GFR (Non-Af Amer) 32.1 BUN/Creatinine Ratio 11.3 Glucose 103 H Lactate Calcium 7.9 L Phosphorus 2.5 Magnesium 1.5 L Total Bilirubin 1.9 H Direct Bilirubin 0.8 H AST 17 ALT 15 Alkaline Phosphatase 92 Troponin I < 0.015 Total Protein 7.0 Albumin 2.9 L Globulin 4.1 H Albumin/Globulin Ratio 0.7 L Lipase 128 TSH 2.530 COVID-19 Eval Order SARS-CoV-2 (PCR) 01/19/21 01/19/21 01/19/21 14:47 14:47 16:46 WBC RBC Hgb Hct MCV MCH MCHC RDW Std Deviation RDW Coeff of Zahida Plt Count MPV Immature Gran % (Auto) Neut % (Auto) Lymph % (Auto) Marshall % (Auto) Eos % (Auto) Baso % (Auto) Neut # (Auto) Lymph # (Auto) Marshall # (Auto) Eos # (Auto) Baso # (Auto) Immature Gran # (Auto) PT INR APTT PTT Ratio Sodium Potassium Chloride Carbon Dioxide Anion Gap BUN Creatinine Est Cr Clr Drug Dosing Est GFR ( Amer) Est GFR (Non-Af Amer) BUN/Creatinine Ratio Glucose Lactate 1.4 Calcium Phosphorus Magnesium Total Bilirubin Direct Bilirubin AST ALT Alkaline Phosphatase Troponin I Total Protein Albumin Globulin Albumin/Globulin Ratio Lipase TSH COVID-19 Eval Order Covid19 at [facility] SARS-CoV-2 (PCR) NEGATIVE Diagnostic Findings Chest X-Ray 01/19/21 14:16 XR chest 1V portable HISTORY: Atypical Chest Pain COMPARISON: Chest 09/21/2013. FINDINGS: No pneumothorax. The heart remains mildly enlarged. There is mild diffuse interstitial thickening. This is likely chronic. Otherwise, no focal lung consolidations to suggest pneumonia. No evidence for pulmonary edema. IMPRESSION: Mild cardiomegaly with diffuse interstitial thickening. This is likely chronic. ACT 112: Negative or not required by law. Electronically signed by: Geovani Banuelos M.D. 01/19/2021 2:44 PM Abdomen/Pelvis CT 01/19/21 14:[address] WITH IV CONTRAST CT DOSE: 767.32 mGy.cm HISTORY: Positive. Vomiting. Diarrhea. Dizziness. TECHNIQUE: Multiaxial CT images of the abdomen and pelvis were performed following the use of intravenous contrast. A dose lowering technique was utilized adhering to the principles of ALARA. COMPARISON STUDY: Abdomen and pelvis CT 08/13/2010. FINDINGS: A punctate calcified granuloma within the base of the right lower lobe. A few bibasilar linear densities suggesting subsegmental atelectasis. No pneumoperitoneum. No pneumatosis. No suspicious lytic or blastic osseous lesions. There is a gastric fundal diverticulum. The liver, gallbladder, pancreas, spleen, and adrenal glands are unremarkable. There is a 9 mm hypodense lesion within the left kidney. This is technically too small to characterize but statistically represents a cyst. Fullness within the lower pole of the left kidney appears to represent a parapelvic cyst. This remains unchanged. No definite hydronephrosis. There is mild bilateral perinephric fat stranding and diffuse urothelial thickening within the bilateral renal collecting systems and ureters. There is moderate bladder wall thickening which is underdistended. Punctate focus of gas anteriorly within the bladder. This is likely within a tiny bladder diverticulum. There is inflammatory change surrounding the thickened bladder. The uterus is surgically absent. There is mild pelvic floor collapse. There is diffuse periureteral edema bilaterally. Small fat-containing right inguinal hernia. Colonic and jejunal diverticulosis. No evidence for acute diverticulitis. No bowel wall thickening or obstruction. Normal appendix. There are also multiple ileal diverticula. No retroperitoneal lymphadenopathy. Normal caliber abdominal aorta. IMPRESSION: 1. Moderate bladder wall thickening with adjacent fat stranding. There is also diffuse bilateral urothelial thickening and mild bilateral perinephric fat stranding. Therefore, these findings favor a cystitis with bilateral pyelitis/pyelonephritis. Recommend correlation with urinalysis. 2. Stable fullness within the lower pole of the left kidney which favors a parapelvic cyst. No definite hydronephrosis. 3. No bowel wall thickening or obstruction. 4. Normal appendix. 5. Small large bowel diverticula. No evidence for acute diverticulitis. ACT 112: Negative or not required by law. Electronically signed by: Geovani Banuelos M.D. 01/19/2021 4:22 PM EKG - my reading -- a.fib, rate >100; NS ST changes III, AVF only Code Status & VTE Plan Code Status full VTE Prophylaxis Plan VTE Prophylaxis will be ordered: Yes PG Care Time/CCT Total # of Minutes Spent Total Time Spent with Patient: Total time spent is greater than 50% in coordination of care (as documented) at patient's floor/unit and/or counseling patient: Coding Level of Care Code 42633 Initial Inpt Care Lvl 3 Diagnoses Sepsis A41.9 Pyelonephritis, acute N10 Acute kidney injury N17.9 Diabetes mellitus E11.9 Hypertension I10 Permanent atrial fibrillation I48.2 Hypomagnesemia E83.42 Hypotension I95.9 Elevated bilirubin R17 DVT prophylaxis Z29.9
[2021-01-19 19:13] LABS: Appearance Urine Turbid (Clear); Bacteria Urine Automated Negative (Negative); Bilirubin Urine Negative (Negative); Blood Urine 3+ (Negative); Color Urine Dark Yellow; Epithelial Cell Urine Auto >30 /lpf (0-5); Glucose Urine UA Negative (Negative); Ketones Urine Negative (Negative); Leukocyte Esterase Urine 3+ (Negative); Nitrite Urine Positive (Negative); Protein Urine 2+ (Negative); RBC Urine Automated >30 /hpf (0-4); Specific Gravity Urine 1.045 (1.000-1.030); Urobilinogen Urine Negative (Negative); WBC Urine Automated >30 /hpf (0-5)
[2021-01-19] MEDS ORDERED: VANCOMYCIN CONSULT ACTIVE PRN (21:33)
[2021-01-19] MEDS ORDERED: ONDANSETRON INJ 2 MG/ML 2 ML VIAL IV PRN (21:33)
[2021-01-19] MEDS ORDERED: ACETAMINOPHEN 325 MG TAB PO PRN (21:33)
[2021-01-19] MEDS ORDERED: CEFEPIME CONSULT ACTIVE PRN (21:33)
[2021-01-19] MEDS ORDERED: VANCOMYCIN HCL 2,000 MG in SODIUM CHLORIDE 0.9% 500 ML IV ONE (21:45)
[2021-01-19] MEDS: INSULIN ASPART 100 UNITS/ML 3 ML PEN SC SCH (21:53)
[2021-01-19] MEDS: SODIUM CHLORIDE 0.9% 1000ML 1,000 ML IV SCH (22:00)
[2021-01-19] MEDS: FAMOTIDINE 20 MG in SYRINGE 3 ML IV SCH (22:42)
[2021-01-19] MEDS: CEFEPIME 2,000 MG in SYRINGE 0 ML IV SCH (22:43)
[2021-01-20 07:06] LABS: Hematocrit (blood only) 36.6 % (37-47); Hemoglobin 12.2 g/dL (12.0-16.0); Mean Corpuscular Hemoglobin 31.6 pg (25-34); Mean Corpuscular Hgb Conc 33.3 g/dL (32-36); Mean Corpuscular Volume 94.8 fL (80-100); Mean Platelet Volume 10.4 fL (7.4-10.4); Platelet Count 116 K/uL (130-400); RDW Coefficient of Variation 13.7 % (11.5-14.5); RDW Standard Deviation 47.3 fL (36.4-46.3); Red Blood Count 3.86 M/uL (4.2-5.4)
[2021-01-20 07:26] LABS: INR 1.8 (0.9-1.1); Prothrombin Time 17.1 Seconds (9.0-12.0)
[2021-01-20 07:45] LABS: Albumin Level 2.5 gm/dl (3.4-5.0); BUN Creatinine Ratio 13.3 (10-20); Bilirubin Direct 0.5 mg/dl (0-0.2); Bilirubin,Total 0.9 mg/dl (0.2-1); Calcium 8.2 mg/dl (8.5-10.1); Creatinine Clr Calc Pharmacy 31.9 ml/min; Est GFR (African American) 32.2 ml/min; Est GFR (Non-African American) 27.8 ml/min; Magnesium 2.6 mg/dl (1.8-2.4); Total Protein 6.4 gm/dl (6.4-8.2)
[2021-01-20] MEDS: FAMOTIDINE 20 MG in SYRINGE 3 ML IV SCH ×2 (08:02→20:38)
[2021-01-20] MEDS: INSULIN ASPART 100 UNITS/ML 3 ML PEN SC SCH ×4 (08:04→20:38)
[2021-01-20] MEDS: dilTIAZem ER 120 MG CAPCR PO SCH (08:04)
[2021-01-20] MEDS: ASPIRIN 81 MG ECTAB PO SCH (08:04)
[2021-01-20] MEDS: ADVANCED PROBIOTIC 1250 MG CAPSULE PO SCH (08:05)
[2021-01-20] MEDS: METOPROLOL SUCC 25MG EXT REL TAB PO SCH (08:05)
[2021-01-20] MEDS: MULTIVITAMIN TAB PO SCH (08:05)
[2021-01-20] MEDS: CEFEPIME 2,000 MG in SYRINGE 0 ML IV SCH ×2 (09:58→22:02)
[2021-01-20] MEDS: SODIUM CHLORIDE 0.9% 1000ML 1,000 ML IV SCH (10:45)
[2021-01-20] MEDS ORDERED: WARFARIN SOD 7.5 MG TAB PO SCH (16:00)
--- NOTE | 2021-01-20 22:42 | Hospitalist Progress Note ---
Date of Service January 20, 2021 Assessment & Plan (1) Sepsis: 2nd to UTI with pyelonephritis. blood cultures with GNR today, continue Cefepime, stop Vanco no fever but WBC up slightly overall she feels better, Cr rising continue inpatient care for about 48 hours, follow up final blood cultures (2) Pyelonephritis, acute: b/l. as seen on CT abd/pelvis on admission no renal stones. patient without any abdominal pain or flank pain fortunately. blood cultures with GNR, urine culture still pending continue Cefepime, stop Vanco (3) Acute kidney injury: baseline Cr 1. Cr up to 1.7 from 1.5, EZRA is likely mild ATN with sepsis continue fluids, making urine (4) Diabetes mellitus: well-controlled. last HbA1c was 6.1% in early October. HOLD metformin. novolog sliding scale for now. DM diet. monitor for hypoglycemia (5) Hypertension: BPs low or low-normal since arrival. 2nd to volume depletion & sepsis. is on CCB and BB for HTN & a.fib rate control. continue both for now but may need adjusting. (6) Permanent atrial fibrillation: INR 1.8 today. given antibiotics will not increase her usual dose. simply resume normal outpatient coumadin regimen. daily INR while here. continue BB and CCB for rate control. rates improved while in ER with volume resuscitation. (7) Hypomagnesemia: 2nd to poor oral intake & vomiting at home. give total 2 grams mag sulfate now. then repeat mag level am. (8) Hypotension: transient. 2nd to sepsis. improved s/p fluid boluses x 2 in ER. monitor carefully. resolved, BP stable all day today (9) Elevated bilirubin: uncertain cause. has never had elevated bilirubin levels in the past. the direct portion is also a bit high. gall bladder anatomically looks normal on CT today. no symptoms referrable to her gall bladder at this time. total bili is 0.9, direct is 0.5 (10) DVT prophylaxis: cont coumadin with daily INR if she remains persistently <2 then start heparin SC for DVT proph PT, OT evals due to weakness Admission and Anticipated Discharge Date Admission Date: January 19, 2021 Subjective patient feeling a lot better less than 24 hours into treatment with fluids and antibiotics both sets of blood cultures growing gram negative bacilli, will stop Vanco no fever, WBC up to 14k, INR 1.8, Cr up a little at 1.7 from 1.5, but making urine eating better, walking around the halls, no dysuria, no chest pain, no dyspnea, no cough discussed that she will likely be here through Wednesday to get final blood culture results Review of Systems Review of Systems: All systems reviewed & are unremarkable except as noted in Subjective Physical Exam Constitutional: WD/WN, vitals as above Neck: trachea midline, no thyromegaly Respiratory: normal respiratory effort, lungs clear to auscultation Cardiovascular: RRR, no murmur, no edema Gastrointestinal (Abdomen): normal bowel sounds, soft, nontender, no hepatosplenomegaly Musculoskeletal: no cyanosis or clubbing, extremities motor strength 5/5 Skin: no rashes, warm and dry Neurologic: patellar DTR's 2+ bilat, sensation intact and PERRL, EOMI, accommodation nl, no face palsy, no dysarthria Psychiatric: A+Ox3, euthymic affect Lymphatic: no cervical or axillary lymphadenopathy Results & Data Results & Data ([facility] [place]) Vital Signs (Past 12 Hours) Vital Signs Temp Pulse Pulse Resp BP Pulse Ox 01/20/21 20:04 36.7 C 80 19 126/82 94 01/20/21 16:22 79 01/20/21 15:26 36.4 C L 76 17 97/65 L 95 01/20/21 10:59 36.4 C L 91 H 16 126/83 98 Laboratory Results Laboratory Results - last 24 hr 01/20/21 01/20/21 01/20/21 06:43 06:43 06:43 WBC 14.90 H RBC 3.86 L Hgb 12.2 Hct 36.6 L MCV 94.8 MCH 31.6 MCHC 33.3 RDW Std Deviation 47.3 H RDW Coeff of Zahida 13.7 Plt Count 116 L MPV 10.4 PT 17.1 H INR 1.8 H Sodium 140 Potassium 4.0 Chloride 110 H Carbon Dioxide 24 Anion Gap 7.0 BUN 24 H Creatinine 1.78 H Est Cr Clr Drug Dosing 31.9 Est GFR ( Amer) 32.2 Est GFR (Non-Af Amer) 27.8 BUN/Creatinine Ratio 13.3 Glucose 102 H POC Glucose Calcium 8.2 L Magnesium 2.6 H Total Bilirubin 0.9 D Direct Bilirubin 0.5 H AST 19 ALT 13 Alkaline Phosphatase 83 Total Protein 6.4 Albumin 2.5 L 01/20/21 01/20/21 01/20/21 06:57 11:25 16:20 WBC RBC Hgb Hct MCV MCH MCHC RDW Std Deviation RDW Coeff of Zahida Plt Count MPV PT INR Sodium Potassium Chloride Carbon Dioxide Anion Gap BUN Creatinine Est Cr Clr Drug Dosing Est GFR ( Amer) Est GFR (Non-Af Amer) BUN/Creatinine Ratio Glucose POC Glucose 96 162 H 102 H Calcium Magnesium Total Bilirubin Direct Bilirubin AST ALT Alkaline Phosphatase Total Protein Albumin 01/20/21 20:33 WBC RBC Hgb Hct MCV MCH MCHC RDW Std Deviation RDW Coeff of Zahida Plt Count MPV PT INR Sodium Potassium Chloride Carbon Dioxide Anion Gap BUN Creatinine Est Cr Clr Drug Dosing Est GFR ( Amer) Est GFR (Non-Af Amer) BUN/Creatinine Ratio Glucose POC Glucose 106 H Calcium Magnesium Total Bilirubin Direct Bilirubin AST ALT Alkaline Phosphatase Total Protein Albumin Medications Administered Current Inpatient Medications Acetaminophen (Acetaminophen 325 Mg Tab) 650 mg PO Q4H PRN PRN Reason: Pain or Fever Stop: 02/18/21 21:32 Aspirin (Aspirin 81 Mg Ectab) 81 mg PO DAILY [facility] Stop: 02/19/21 08:59 Last Admin: 01/20/21 08:04 Dose: 81 mg Documented by: Diltiazem HCl (Diltiazem Er 120 Mg Capcr) 120 mg PO DAILY [facility] Stop: 02/19/21 08:59 Last Admin: 01/20/21 08:04 Dose: 120 mg Documented by: Sodium Chloride (Nss 1000ml) 1,000 mls @ 75 mls/hr IV .[id number] [facility] Stop: 01/21/21 00:12 Last Admin: 01/20/21 10:45 Dose: 75 mls/hr Documented by: Famotidine 20 mg/ Syringe 5 mls @ 2.5 mls/min IV BID [facility] Stop: 02/18/21 21:59 Last Admin: 01/20/21 20:38 Dose: 2.5 mls/min Documented by: Cefepime HCl 2,000 mg/ Syringe 20 mls @ 5 mls/min IV Q12H [facility]; Protocol Stop: 01/21/21 21:59 Last Admin: 01/20/21 22:02 Dose: 5 mls/min Documented by: Insulin Aspart (Insulin Aspart 100 Units/Ml 3 Ml Pen) 0 units SC ACHS [facility] Stop: 02/18/21 21:59 Last Admin: 01/20/21 20:38 Dose: Not Given Documented by: Lactobacillus Acidoph/Casei/Rhamnos (Advanced Probiotic 1250 Mg Capsule) 2 cap PO DAILY [facility] Stop: 02/19/21 08:59 Last Admin: 01/20/21 08:05 Dose: 2 cap Documented by: Metoprolol Succinate (Metoprolol Succ 25mg Ext Rel Tab) 25 mg PO DAILY [facility] Stop: 02/19/21 08:59 Last Admin: 01/20/21 08:05 Dose: 25 mg Documented by: Miscellaneous Information (Cefepime Consult Active) 1 ea N/A UD PRN PRN Reason: Consult Stop: 02/18/21 21:32 Multivitamins (Multivitamin Tab) 1 tab PO DAILY [facility] Stop: 02/19/21 08:59 Last Admin: 01/20/21 08:05 Dose: 1 tab Documented by: Ondansetron HCl (Ondansetron Inj 2 Mg/Ml 2 Ml Vial) 4 mg IV Q6H PRN PRN Reason: Nausea Stop: 02/18/21 21:32 Warfarin Sodium (Warfarin Sod 7.5 Mg Tab) 7.5 mg PO MoFr@1600 [facility] Stop: 02/19/21 15:59 Last Admin: 01/20/21 16:54 Dose: 7.5 mg Documented by: Warfarin Sodium (Warfarin Sod 5 Mg Tab) 5 mg PO SuTuWeThSa@1600 [facility] Stop: 02/20/21 15:59 PG Care Time/CCT Total # of Minutes Spent Total Time Spent with Patient: Total time spent is greater than 50% in coordination of care (as documented) at patient's floor/unit and/or counseling patient: Coding Level of Care Code 70324 Subseq Hosp Care Lvl 3 Diagnoses Sepsis A41.9 Pyelonephritis, acute N10 Acute kidney injury N17.9 Diabetes mellitus E11.9 Hypertension I10 Permanent atrial fibrillation I48.2 Hypomagnesemia E83.42 Hypotension I95.9 Elevated bilirubin R17 DVT prophylaxis Z29.9
[2021-01-21 06:53] LABS: Hematocrit (blood only) 37.1 % (37-47); Hemoglobin 12.3 g/dL (12.0-16.0); Mean Corpuscular Hemoglobin 31.9 pg (25-34); Mean Corpuscular Hgb Conc 33.2 g/dL (32-36); Mean Corpuscular Volume 96.1 fL (80-100); Mean Platelet Volume 10.8 fL (7.4-10.4); Platelet Count 136 K/uL (130-400); RDW Coefficient of Variation 13.6 % (11.5-14.5); Red Blood Count 3.86 M/uL (4.2-5.4); White Blood Count 9.22 K/uL (4.8-10.8)
[2021-01-21 06:58] LABS: INR 1.8 (0.9-1.1); Prothrombin Time 17.7 Seconds (9.0-12.0)
[2021-01-21 07:38] LABS: Albumin Level 2.5 gm/dl (3.4-5.0); BUN Creatinine Ratio 16.1 (10-20); Calcium 8.2 mg/dl (8.5-10.1); Est GFR (African American) 39.3 ml/min; Est GFR (Non-African American) 33.9 ml/min
[2021-01-21 07:40] LABS: Albumin Globulin Ratio 0.6 (0.9-2); Bilirubin,Total 0.5 mg/dl (0.2-1); Globulin 4.1 gm/dl (2.5-4.0); Total Protein 6.6 gm/dl (6.4-8.2)
[2021-01-21] MEDS: dilTIAZem ER 120 MG CAPCR PO SCH (08:17)
[2021-01-21] MEDS: ASPIRIN 81 MG ECTAB PO SCH (08:17)
[2021-01-21] MEDS: METOPROLOL SUCC 25MG EXT REL TAB PO SCH (08:17)
[2021-01-21] MEDS: ADVANCED PROBIOTIC 1250 MG CAPSULE PO SCH (08:17)
[2021-01-21] MEDS: MULTIVITAMIN TAB PO SCH (08:17)
[2021-01-21] MEDS: FAMOTIDINE 20 MG in SYRINGE 3 ML IV SCH ×2 (08:18→20:40)
[2021-01-21] MEDS: INSULIN ASPART 100 UNITS/ML 3 ML PEN SC SCH ×4 (08:29→22:10)
[2021-01-21] MEDS: CEFEPIME 2,000 MG in SYRINGE 0 ML IV SCH ×2 (09:26→21:38)
[2021-01-21] MEDS ORDERED: WARFARIN SOD 5 MG TAB PO SCH (16:00)
--- NOTE | 2021-01-21 21:47 | Hospitalist Progress Note ---
Date of Service January 21, 2021 Assessment & Plan (1) Sepsis: 2nd to UTI with pyelonephritis. blood cultures with GNR, still no further differentiation, continue Cefepime no fever, WBC down to normal overall she feels better, Cr coming down to 1.5 continue inpatient care for about 24 hours, follow up final blood cultures to determine antibiotic coverage on discharge (2) Pyelonephritis, acute: b/l. as seen on CT abd/pelvis on admission no renal stones. patient without any abdominal pain or flank pain fortunately. blood cultures with GNR, urine culture with three different bacteria continue Cefepime, plan to switch to PO tomorrow and discharge depending on what bacterial grows (3) Acute kidney injury: baseline Cr 1. Cr down to 1.5 from 1.7, EZRA is likely mild ATN with sepsis stop fluids, making urine, eaiting and drinking well (4) Diabetes mellitus: well-controlled. last HbA1c was 6.1% in early October. resume Metformin per patient request novolog sliding scale, get rid of carb ration, sugars normal DM diet. monitor for hypoglycemia (5) Hypertension: BPs low or low-normal since arrival. 2nd to volume depletion & sepsis. is on CCB and BB for HTN & a.fib rate control. continue both for now but may need adjusting. (6) Permanent atrial fibrillation: INR 1.8 today. given antibiotics will not increase her usual dose. simply resume normal outpatient coumadin regimen. daily INR while here. continue BB and CCB for rate control. rates improved while in ER with volume resuscitation. (7) Hypomagnesemia: 2nd to poor oral intake & vomiting at home. give total 2 grams mag sulfate now. then repeat mag level am. (8) Hypotension: transient. 2nd to sepsis. improved s/p fluid boluses x 2 in ER. monitor carefully. resolved, BP stable all day today (9) Elevated bilirubin: uncertain cause. has never had elevated bilirubin levels in the past. the direct portion is also a bit high. gall bladder anatomically looks normal on CT today. no symptoms referrable to her gall bladder at this time. total bili is 0.9, direct is 0.5 (10) DVT prophylaxis: cont coumadin with daily INR if she remains persistently <2 then start heparin SC for DVT proph PT, OT evals due to weakness Admission and Anticipated Discharge Date Admission Date: January 19, 2021 Subjective patient doing really well, wants to go home discussed that her blood cultures are still pending, I need a final result to know how to treat her urine culture with significant growth of three karissa WBC normal, Cr improved to 1.5, making a lot of urine, eating great, ambulating in the kruse will downgrade to medical floor she wants to go home tomorrow if possible Review of Systems Review of Systems: All systems reviewed & are unremarkable except as noted in Subjective Physical Exam Constitutional: WD/WN, vitals as above Neck: trachea midline, no thyromegaly Respiratory: normal respiratory effort, lungs clear to auscultation Cardiovascular: RRR, no murmur, no edema Gastrointestinal (Abdomen): normal bowel sounds, soft, nontender, no hepatosplenomegaly Musculoskeletal: no cyanosis or clubbing, extremities motor strength 5/5 Skin: no rashes, warm and dry Neurologic: patellar DTR's 2+ bilat, sensation intact and PERRL, EOMI, accomm odation nl, no face palsy, no dysarthria Psychiatric: A+Ox3, euthymic affect Lymphatic: no cervical or axillary lymphadenopathy Results & Data Results & Data ([facility]) Vital Signs (Past 12 Hours) Vital Signs Temp Pulse Resp BP Pulse Ox 01/21/21 19:51 36.8 C 91 H 18 145/79 H 96 01/21/21 15:33 36.8 C 92 H 16 151/70 H 94 01/21/21 15:07 36.5 C 99 H 20 134/85 97 01/21/21 11:03 36.5 C 91 H 17 158/89 H 98 Laboratory Results Laboratory Results - last 24 hr 01/21/21 01/21/21 01/21/21 00:20 06:19 06:19 WBC 9.22 RBC 3.86 L Hgb 12.3 Hct 37.1 MCV 96.1 MCH 31.9 MCHC 33.2 RDW Std Deviation 47.0 H RDW Coeff of Zahida 13.6 Plt Count 136 MPV 10.8 H PT INR Sodium 142 Potassium 4.0 Chloride 113 H Carbon Dioxide 23 Anion Gap 6.0 BUN 24 H Creatinine 1.51 H Est Cr Clr Drug Dosing 38.0 Est GFR ( Amer) 39.3 Est GFR (Non-Af Amer) 33.9 BUN/Creatinine Ratio 16.1 Glucose 93 POC Glucose 120 H Calcium 8.2 L Total Bilirubin 0.5 AST 17 ALT 14 Alkaline Phosphatase 105 Total Protein 6.6 Albumin 2.5 L Globulin 4.1 H Albumin/Globulin Ratio 0.6 L 01/21/21 01/21/21 01/21/21 06:19 07:07 11:11 WBC RBC Hgb Hct MCV MCH MCHC RDW Std Deviation RDW Coeff of Zahida Plt Count MPV PT 17.7 H INR 1.8 H Sodium Potassium Chloride Carbon Dioxide Anion Gap BUN Creatinine Est Cr Clr Drug Dosing Est GFR ( Amer) Est GFR (Non-Af Amer) BUN/Creatinine Ratio Glucose POC Glucose 94 98 Calcium Total Bilirubin AST ALT Alkaline Phosphatase Total Protein Albumin Globulin Albumin/Globulin Ratio 01/21/21 01/21/21 16:23 20:20 WBC RBC Hgb Hct MCV MCH MCHC RDW Std Deviation RDW Coeff of Zahida Plt Count MPV PT INR Sodium Potassium Chloride Carbon Dioxide Anion Gap BUN Creatinine Est Cr Clr Drug Dosing Est GFR ( Amer) Est GFR (Non-Af Amer) BUN/Creatinine Ratio Glucose POC Glucose 109 H 99 Calcium Total Bilirubin AST ALT Alkaline Phosphatase Total Protein Albumin Globulin Albumin/Globulin Ratio Microbiology 01/19/21 16:41 Blood Aerobic Blood Culture - Preliminary Gram negative bacilli 01/19/21 16:41 Blood Anaerobic Blood Culture - Preliminary Gram negative bacilli 01/19/21 19:00 Urine,Clean Catch Urine Culture - Final More than three types of organisms present, all high counts mixed probable skin karissa - No further identifications or sensitivities to follow. 01/19/21 16:46 Blood Aerobic Blood Culture - Preliminary Gram negative bacilli 01/19/21 16:46 Blood Anaerobic Blood Culture - Preliminary Gram negative bacilli Medications Administered Current Inpatient Medications Acetaminophen (Acetaminophen 325 Mg Tab) 650 mg PO Q4H PRN PRN Reason: Pain or Fever Stop: 02/18/21 21:32 Aspirin (Aspirin 81 Mg Ectab) 81 mg PO DAILY [facility] Stop: 02/19/21 08:59 Last Admin: 01/21/21 08:17 Dose: 81 mg Documented by: Diltiazem HCl (Diltiazem Er 120 Mg Capcr) 120 mg PO DAILY [facility] Stop: 02/19/21 08:59 Last Admin: 01/21/21 08:17 Dose: 120 mg Documented by: Famotidine 20 mg/ Syringe 5 mls @ 2.5 mls/min IV BID [facility] Stop: 02/18/21 21:59 Last Admin: 01/21/21 20:40 Dose: 2.5 mls/min Documented by: Cefepime HCl 2,000 mg/ Syringe 20 mls @ 5 mls/min IV Q12H [facility]; Protocol Stop: 02/02/21 21:59 Last Admin: 01/21/21 21:38 Dose: 5 mls/min Documented by: Insulin Aspart (Insulin Aspart 100 Units/Ml 3 Ml Pen) 0 units SC ACHS [facility] Stop: 02/20/21 16:29 Last Admin: 01/21/21 18:57 Dose: Not Given Documented by: Lactobacillus Acidoph/Casei/Rhamnos (Advanced Probiotic 1250 Mg Capsule) 2 cap PO DAILY [facility] Stop: 02/19/21 08:59 Last Admin: 01/21/21 08:17 Dose: 2 cap Documented by: Metformin HCl (Metformin Hcl 500 Mg Tab) 500 mg PO DAILY [facility] Stop: 02/21/21 08:59 Metoprolol Succinate (Metoprolol Succ 25mg Ext Rel Tab) 25 mg PO DAILY [facility] Stop: 02/19/21 08:59 Last Admin: 01/21/21 08:17 Dose: 25 mg Documented by: Miscellaneous Information (Cefepime Consult Active) 1 ea N/A UD PRN PRN Reason: Consult Stop: 02/18/21 21:32 Multivitamins (Multivitamin Tab) 1 tab PO DAILY [facility] Stop: 02/19/21 08:59 Last Admin: 01/21/21 08:17 Dose: 1 tab Documented by: Ondansetron HCl (Ondansetron Inj 2 Mg/Ml 2 Ml Vial) 4 mg IV Q6H PRN PRN Reason: Nausea Stop: 02/18/21 21:32 Warfarin Sodium (Warfarin Sod 7.5 Mg Tab) 7.5 mg PO MoFr@1600 [facility] Stop: 02/19/21 15:59 Last Admin: 01/20/21 16:54 Dose: 7.5 mg Documented by: Warfarin Sodium (Warfarin Sod 5 Mg Tab) 5 mg PO SuTuWeThSa@1600 [facility] Stop: 02/20/21 15:59 Last Admin: 01/21/21 16:18 Dose: 5 mg Documented by: PG Care Time/CCT Total # of Minutes Spent Total Time Spent with Patient: Total time spent is greater than 50% in coordination of care (as documented) at patient's floor/unit and/or counseling patient: Coding Level of Care Code 50633 Subseq Hosp Care Lvl 3 Diagnoses Sepsis A41.9 Pyelonephritis, acute N10 Acute kidney injury N17.9 Diabetes mellitus E11.9 Hypertension I10 Permanent atrial fibrillation I48.2 Hypomagnesemia E83.42 Hypotension I95.9 Elevated bilirubin R17 DVT prophylaxis Z29.9
[2021-01-22 08:16] LABS: Hematocrit (blood only) 38.7 % (37-47); Hemoglobin 12.9 g/dL (12.0-16.0); Mean Corpuscular Hemoglobin 31.8 pg (25-34); Mean Corpuscular Hgb Conc 33.3 g/dL (32-36); Mean Corpuscular Volume 95.3 fL (80-100); Mean Platelet Volume 10.5 fL (7.4-10.4); Platelet Count 168 K/uL (130-400); RDW Coefficient of Variation 13.3 % (11.5-14.5); RDW Standard Deviation 46.3 fL (36.4-46.3); Red Blood Count 4.06 M/uL (4.2-5.4); White Blood Count 7.43 K/uL (4.8-10.8)
[2021-01-22] MEDS: INSULIN ASPART 100 UNITS/ML 3 ML PEN SC SCH (08:19)
[2021-01-22 08:23] LABS: INR 2.4 (0.9-1.1); Prothrombin Time 22.7 Seconds (9.0-12.0)
[2021-01-22] MEDS: dilTIAZem ER 120 MG CAPCR PO SCH (08:23)
[2021-01-22] MEDS: ASPIRIN 81 MG ECTAB PO SCH (08:23)
[2021-01-22] MEDS: MULTIVITAMIN TAB PO SCH (08:24)
[2021-01-22] MEDS: ADVANCED PROBIOTIC 1250 MG CAPSULE PO SCH (08:24)
[2021-01-22] MEDS: METOPROLOL SUCC 25MG EXT REL TAB PO SCH (08:25)
[2021-01-22] MEDS: FAMOTIDINE 20 MG in SYRINGE 3 ML IV SCH (08:31)
[2021-01-22 08:49] LABS: Potassium 4.2 mmol/L (3.5-5.1)
[2021-01-22 08:50] LABS: BUN Creatinine Ratio 16.3 (10-20); Calcium 8.9 mg/dl (8.5-10.1); Creatinine Clr Calc Pharmacy 40.1 ml/min; Est GFR (African American) 42.4 ml/min; Est GFR (Non-African American) 36.5 ml/min; Magnesium 2.1 mg/dl (1.8-2.4)
[2021-01-22] MEDS ORDERED: metFORMIN HCL 500 MG TAB PO SCH (09:00)
--- NOTE | 2021-01-22 09:57 | Discharge Summary ---
Date of Service January 22, 2021 Admission HPI Per Admitting Provider 75yo female with permanent a.fib on coumadin presents with illness starting on Wednesday. Began with urinary frequency on Wednesday evening which persisted into Wednesday. No dysuria or foul-smelling urine however. This was followed by nausea with emesis along with anorexia starting Wednesday. Mild loose stool on Wednesday but none since. Subjective fever yesterday, then had cold chills overnight. Anorexia and nausea persisted today. She then began to feel dizzy prior to coming to the hospital. She states "I thought I was dehydrated." All of the above prompted her to seek medical attention. Denies any sick contacts. She is fully vaccinated against COVID-19. Principal Diagnosis Sepsis due to E coli UTI, pyelonephritis Discharge Exam Constitutional WD/WN, vitals as above Neck trachea midline, no thyromegaly Respiratory normal respiratory effort, lungs clear to auscultation Cardiovascular RRR, no murmur, no edema Gastrointestinal (Abdomen) normal bowel sounds, soft, nontender, no hepatosplenomegaly Musculoskeletal no cyanosis or clubbing, extremities motor strength 5/5 Skin no rashes, warm and dry Neurologic patellar DTR's 2+ bilat, sensation intact and PERRL, EOMI, accommodation nl, no face palsy, no dysarthria Psychiatric A+Ox3, euthymic affect Lymphatic no cervical or axillary lymphadenopathy Discharge Data Allergies Allergy/AdvReac Type Severity Reaction Status Date / Time No Known Drug Allergies Allergy Unknown Verified 01/19/21 15:12 Consultations 01/19/21 16:28 ED Decision to Admit Stat Ordered Studies 01/19/21 14:20 CT abd pelvis IV con only Stat Hospital Course (1) Sepsis: 2nd to UTI with pyelonephritis. blood cultures with E coli, rocha sensitive treated with Cefepime IV while inpatient transition to cephalexin 500mg BID x 11 more days no fever, WBC down to normal overall she feels better, Cr coming down to 1.4 stay well nourished, well hydrated at home follow up with PCP next week (2) Pyelonephritis, acute: bilateral as seen on CT abd/pelvis on admission no renal stones. patient without any abdominal pain or flank pain fortunately. blood cultures with E coli, rocha sensitive urine culture with three different bacteria treated with Cefepime while inpatient, plan to switch to cephalexin (3) Acute kidney injury: baseline Cr 1. Cr down to 1.4 from 1.7, EZRA is likely mild ATN with sepsis stop fluids, making urine, eaiting and drinking well could repeat BMP next week with PCP follow up (4) Diabetes mellitus: well-controlled. last HbA1c was 6.1% in early October. resume Metformin per patient request novolog sliding scale, get rid of carb ration, sugars normal DM diet. monitor for hypoglycemia, no episodes (5) Hypertension: BPs low or low-normal since arrival. 2nd to volume depletion & sepsis. is on CCB and BB for HTN & a.fib rate control. continue both for now (6) Permanent atrial fibrillation: INR 2.4 continue BB and CCB for rate control. rates improved while in ER with volume resuscitation. (7) Hypomagnesemia: 2nd to poor oral intake & vomiting at home. replaced IV (8) Hypotension: transient. 2nd to sepsis. improved s/p fluid boluses x 2 in ER. monitor carefully. resolved, BP stable for three days (9) Elevated bilirubin: uncertain cause. has never had elevated bilirubin levels in the past. the direct portion is also a bit high. gall bladder anatomically looks normal on CT no symptoms referrable to her gall bladder at this time. total bili is 0.9, direct is 0.5 (10) DVT prophylaxis: cont coumadin with daily INR PT, OT evals due to weakness Total Time Total Time Spent Total Time Spent (In Minutes): 33 Total Time Includes: Examination of the Patient, Discharge Planning and Medicat ion Reconciliation Discharge Plan Discharge Items Patient Disposition: Home - Self-Care Reason For Visit: SEPSIS 2ND TO UTI/PYELONEPHRITIS Discharge Diagnosis: Sepsis due to E coli urinary tract infection and pyelonephritis Condition on Discharge: Good Goals: complete course of antibiotics follow up with PCP next week Activity: Resume your previous activity Driving/Machine Use: No limitations Weightbearing: Full weightbearing Non-emergency contact: Primary Care Provider Call non-emergency contact if: you have any medication questions and your symptoms worsen Follow-up/Referrals: Eric Nielson III, CRNP [Primary Care Provider] - (one week) Diet: Carb Consistent or DM2 Addtl Attending Provider Instructions: Medications: - KEFLEX: 500mg twice a day for 11 more days to complete treatment for sepsis, pyelonephritis Blood cultures grew out E coli, rocha sensitive, source was urine, kidney infection continue treatment for 11 more days at this point blood would be clean as you have been on IV antibiotics for three days stay well nourished, well hydrated at home follow up with PCP next week Pending Studies at Discharge: No Stand-Alone Forms: [facility], Smoking Cessation Medications and DC Order Prescriptions: New cephalexin 500 mg capsule 500 mg PO BID 11 Days Qty: 22 RF: 0 Continued warfarin 5 mg tablet See Rx Instructions mg PO DAILY Qty: 150 RF: 3 diltiazem HCl 120 mg capsule,extended release 24 hr 120 mg PO DAILY Qty: 90 RF: 1 metformin 500 mg tablet 500 mg PO DAILY Qty: 90 RF: 1 metoprolol succinate 25 mg tablet extended release 24 hr 25 mg PO DAILY Qty: 90 RF: 3 multivitamin tablet 1 tab PO DAILY RF: 0 (DME) OneTouch Ultra Blue Test Strip Strip See Rx Instructions .MEDSUPPLY Qty: 100 RF: 1 (DME) lancets [OneTouch Delica Plus Lancet] 30 gauge misc See Rx Instructions .MEDSUPPLY Qty: 100 RF: 5 aspirin [Aspirin Low Dose] 81 mg Tablet,Delayed Release (Dr/Ec) 81 mg PO DAILY RF: 0 Discharge Orders: Discharge Order (Routine); Ordered 01/22/21 Ordered By: Wellington Christensen Admission Data Admit Date/Time: 01/19/21 18:36 Attending Provider: Wellington Christensen Admit Provider: Lukasz Hilton Primary Care Provider: Eric Nielson III Other Providers: Lukasz Hilton Coding Level of Care Code D/C Day Management >30 mins Diagnoses Sepsis A41.9 Pyelonephritis, acute N10 Acute kidney injury N17.9 Diabetes mellitus E11.9 Hypertension I10 Permanent atrial fibrillation I48.2 Hypomagnesemia E83.42 Hypotension I95.9 Elevated bilirubin R17 DVT prophylaxis Z29.9
== END 2021-01-22 11:39 | disposition home or self-care (01) | DRG 871 ==
LOC: ED 13:22 → SUATTDRO 18:36 → 2S 18:36 → 2N 01-21 12:26